=== PATIENT | male | born 1995 | race Caucasian/White ===

== ENCOUNTER 2017-02-11 03:28 | Emergency (ER) | payer SELFPAY ==
[2017-02-11] MEDS ORDERED: ONDANSETRON HCL INJ/PF 4 MG/2 ML SDV ONE (03:39)
[2017-02-11] MEDS ORDERED: ONDANSETRON HCL INJ/PF 4 MG/2 ML SDV IV ONE (03:40)
[2017-02-11] MEDS ORDERED: NORMAL SALINE 1000 ML 1,000 ML IV ONE ×3 (03:41→08:39)
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
--- NOTE | 2017-02-11 04:47 | RADIOLOGY REPORT (SQ) ---
EXAM DESCRIPTION: CHEST SINGLE VIEW COMPLETED DATE/TIME: 02/11/2017 4:18 am REASON FOR STUDY: intaoxication, recent vomiting. COMPARISON: None. EXAM PARAMETERS: NUMBER OF VIEWS: One view. TECHNIQUE: Single frontal radiographic view of the chest acquired. RADIATION DOSE: NA LIMITATIONS: None. FINDINGS: LUNGS AND PLEURA: No opacities, masses or pneumothorax. No pleural effusion. MEDIASTINUM AND HILAR STRUCTURES: No masses. Contour normal. HEART AND VASCULAR STRUCTURES: Heart normal in size. Normal vasculature. BONES: No acute findings. HARDWARE: None in the chest. OTHER: No other significant finding. IMPRESSION: NO ACUTE RADIOGRAPHIC FINDING IN THE CHEST. TECHNICAL DOCUMENTATION: JOB ID: [id number]
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
[2017-02-11] MEDS ORDERED: DIPH/PERTUSS(ACELL)/TETANUS VAC/PF 0.5 ML SYR (>=10YO) IM ONE (06:36)
--- NOTE | 2017-02-11 14:02 | ER Document Report ---
Doctor's Note Notes: 02/11/17 14:01 Patient was evaluated and is stable heart rate was 99 when I saw the patient. He satting 100% on room air he denies any complaints denies any pain in his face. He is stable for discharge
[2017-02-11 14:05] VITALS: BP 105/81
== END 2017-02-11 14:14 ==
LOC: ER 03:28
DX: S00.81XA Abrasion of other part of head, initial encounter (principal); Y35.893A Legal intervention involving other specified means, suspect injured, initial encounter; F10.129 Alcohol abuse with intoxication, unspecified; R11.10 Vomiting, unspecified; Z23 Encounter for immunization
CPT/HCPCS: 99285; 96360; 96361; 90471; 36415; 80307; 71010; 70450; 70486; 72125; 90715; J7030